=== PATIENT | male | born 1955 | race Caucasian/White ===

== ENCOUNTER 2021-01-11 12:55 | Emergency (ER) | payer MEDICARE ==
[~2021-01-11] VITALS: Ht 175.3 cm; Wt 56.4 kg
--- NOTE | 2021-01-11 13:44 | NUR ---
PT AMBULATORY TO ROOM 24 W/ C/O GLF AFTER PT STATES HE STOOD UP TOO QUICKLY AND FELT DIZZY ON FRIDAY 3 DAYS AGO AND HIS JAW FELL ON THE KITCHEN COUNTER. PT STATES HE HIT HIS CHIN ON THE COUNTER AND HAD A LAC THAT WOULDN'T STOP BLEEDING. PT STATES HE PUT GLUE ON IT BECAUSE IT WOULDN'T STOP BLEEDING. HE ALSO HAS C/O L MIDDLE FINGER PAIN AND SWELLING. PT RESTING ON GURNEY. NADN. MONITORS APPLIED. VSS. WARM BLANKET PROVIDED. CALL LIGHT IN REACH. BRIAN LOPEZ AT BEDSIDE FOR EVAL.
[2021-01-11 14:21] LABS: BASOPHILS % (AUTO) 1 % (0-1); EOSINOPHILS % (AUTO) 1 % (1-7); LYMPHOCYTES % (AUTO) 13 % (22-44); MEAN CORPUSCULAR HGB CONC 34.3 g/dL (33.2-36.2); MEAN PLATELET VOLUME 8.4 fL (7.4-10.4); MONOCYTES % (AUTO) 13 % (2-9); NEUTROPHILS % (AUTO) 72 % (42-75); PLATELET COUNT 244 x10^3/uL (130-400); RED BLOOD COUNT 4.16 x10^6/uL (4.38-5.82); RED CELL DISTRIBUTION WIDTH 14.3 % (9.4-14.8)
[2021-01-11 14:29] LABS: ALANINE AMINOTRANSFERASE 43 U/L (12-78); ANION GAP 9 mmol/L (5-15); CALCIUM 9.5 mg/dL (8.5-10.1); CHLORIDE 99 mmol/L (98-107); CREATININE 0.78 mg/dL (0.7-1.3)
[2021-01-11 14:33] LABS: ALKALINE PHOSPHATASE 116 U/L (45-117); BILIRUBIN,TOTAL 1.3 mg/dL (0.2-1.0); TOTAL PROTEIN 7.3 g/dL (6.4-8.2); TROPONIN I < 0.015 ng/mL (0.000-0.045)
--- NOTE | 2021-01-11 14:34 | NUR ---
PT RESTING ON GURNEY. NADN. BERNARD.
[2021-01-11 14:47] LABS: <PLATELET ESTIMATE> ADEQUATE; <PLT MORPHOLOGY> NORMAL PLT MORPH
--- NOTE | 2021-01-11 14:54 | NUR ---
PT CHART REVIEWED AND PLACED FOR RECHECK.
[2021-01-11] MEDS ORDERED: LIDOCAINE 1%, 10ML INFIL ONE (15:30)
[2021-01-11] MEDS ORDERED: LIDOCAINE-MPF 1%, 5ML ONE (15:37)
[2021-01-11] MEDS ORDERED: POTASSIUM CHLORIDE 20 MEQ TAB.ER.PRT ONE (15:41)
--- NOTE | 2021-01-11 15:58 | NUR ---
PT RESTING ON GURNEY. NADN. BERNARD.
[2021-01-11] MEDS ORDERED: POTASSIUM CHLORIDE 20 MEQ TAB.ER.PRT PO ONE (16:00)
[2021-01-11 16:49] VITALS: BP 126/87
--- NOTE | 2021-01-11 16:50 | NUR ---
LAC TO CHIN CLEANED BY LAITH FLORES. PER BRIAN LOPEZ NO STITCHES THE WOUND IS 3 DAYS OLD AND PT HAS INFECTION TO JAW.
--- NOTE | 2021-01-11 17:16 | NUR ---
TASK RN. PT D/C'D PER ORDERS. PT VERBALIZED UNDERSTANDING OF D/C INSTRUCTIONS. PT HAS ALL OWN BELONGINGS UPON D/C.
== END 2021-01-11 17:43 | disposition home or self-care (01) ==
LOC: ED 17:24
DX: S63.283A Dislocation of proximal interphalangeal joint of left middle finger, initial encounter (principal); S01.81XA Laceration without foreign body of other part of head, initial encounter; L03.211 Cellulitis of face; E87.6 Hypokalemia; R00.0 Tachycardia, unspecified; R07.89 Other chest pain; W01.0XXA Fall on same level from slipping, tripping and stumbling without subsequent striking against object, initial encounter; Y93.89 Activity, other specified; Y92.009 Unspecified place in unspecified non-institutional (private) residence as the place of occurrence of the external cause; Y99.8 Other external cause status
CPT/HCPCS: 26770; 36415; 70100; 71045; 80053; 84484; 85025; 93005; 99285

== ENCOUNTER 2021-01-15 11:11 | Emergency (ER) | payer MEDICARE ==
[~2021-01-15] VITALS: Ht 175.3 cm; Wt 57.8 kg
--- NOTE | 2021-01-15 11:36 | NUR ---
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
[2021-01-15 12:35] VITALS: BP 108/80
== END 2021-01-15 13:16 | disposition home or self-care (01) ==
LOC: ED 13:10
DX: S01.81XA Laceration without foreign body of other part of head, initial encounter (principal); M79.645 Pain in left finger(s); Z48.01 Encounter for change or removal of surgical wound dressing; X58.XXXA Exposure to other specified factors, initial encounter; Y93.89 Activity, other specified; Y92.89 Other specified places as the place of occurrence of the external cause; Y99.8 Other external cause status
CPT/HCPCS: 99281